=== PATIENT | male | born 1980 | race Caucasian/White ===

== ENCOUNTER 2019-08-12 14:21 | Inpatient (IN) | payer MEDICAID ==
[~2019-08-12] VITALS: Ht 177.8 cm; Wt 87.5 kg
[~2019-08-12 14:21] MED LIST: IBUPROFEN600 MG PO; NKM; ROBAXIN-750750 MG PO
[2019-08-12 14:46] VITALS: BP 117/72
--- NOTE | 2019-08-12 14:56 | NUR ---
ED Nurse Note: PT WALKED IN DUE TO FLU LIKE SYMPTOMS LIKE HEADACHE, FEVER, CHILLS, DIARRHEA WITH PRODUCTIVE COUGHING WITH YELLOW PHLEGM X 1 WEEK. AAO X4, AMBULATORY WITH NO RESPIRATORY DISTRESS.
--- NOTE | 2019-08-12 15:19 | Emergency Room Report ---
History of Present Illness General Chief Complaint: Flu Like Symptoms Source: Patient Present Illness HPI Patient is a 39-year-old male who presents after increased generalized body aches and cough. Reports of increased nasal congestion. He states his been having some increased nosebleeding over the past few days. Reports taking multiple different kinds of supplements including a keto supplement which he had been taking immediately prior to onset of symptoms. He reports vaping but does not smoke cigarettes. He reports having some sore throat as well as some productive cough. Allergies: Coded Allergies: LACTOSE (Unverified Allergy, Intermediate, hives, diarrhea, 08/12/19) Patient History Reviewed Nursing Documentation: PMH: Agreed; PSxH: Agreed Nursing Documentation-PMH Past Medical History: No History, Except For Hx Cardiac Problems: No Hx Hypertension: No Hx Pacemaker: No Hx Asthma: No Hx COPD: No Hx Diabetes: No Hx Cancer: No Hx Gastrointestinal Problems: Yes - gastritis, hiatal hernia Hx Dialysis: No History Of Psychiatric Problem: No Hx Neurological Problems: No Hx Cerebrovascular Accident: No Hx Seizures: No Review of Systems All Other Systems: negative except mentioned in HPI Physical Exam Vital Signs Date Time Temp Pulse Resp B/P (MAP) Pulse Ox O2 Delivery O2 Flow Rate FiO2 08/12/19 14:46 98.6 101 22 117/72 92 Room Air General Appearance: well appearing, no apparent distress, alert, GCS 15, non- toxic Head: normocephalic, atraumatic ENT: hearing grossly normal, normal voice Neck: full range of motion, supple Respiratory: lungs clear, no respiratory distress, speaking full sentences Cardiovascular #1: normal inspection, normal peripheral pulses Musculoskeletal: no calf tenderness Neurologic: normal gait Psychiatric: mood/affect normal Skin: no rash Medical Decision Making Diagnostic Impression: Primary Impression: Interstitial pneumonia Additional Impression: Lung injury associated with vaping ER Course Patient presented for increased congestion and cough. Differential diagnosis include was not limited to strep pharyngitis, pneumonia, vaping associated lung injury, medication toxicity among others. Because of complexity of patient's case imaging studies were ordered.. Chest x-ray 1 view read by radiology showed diffuse increased interstitial markings suggesting pulmonary vascular congestion or interstitial pneumonitis. No Focal infiltrate. Patient was given breathing treatment with some improvement.Patient was noted to have some elevation of his white blood count. He was given IV fluids as well as IV antibiotics. EKG interpreted by me showed normal sinus rhythm with a rate of [address] or T wave changes. Dr. Zak Green was contacted for inpatient management due to persistent tachypnea and abnormal chest x-ray. Patient will be admitted for further management. Labs Test 08/12/19 16:50 White Blood Count 19.2 K/UL (4.8-10.8) Red Blood Count 5.73 M/UL (4.70-6.10) Hemoglobin 13.9 G/DL (14.2-18.0) Hematocrit 42.1 % (42.0-52.0) Mean Corpuscular Volume 74 FL (80-99) Mean Corpuscular Hemoglobin 24.3 PG (27.0-31.0) Mean Corpuscular Hemoglobin Concent 33.1 G/DL (32.0-36.0) Red Cell Distribution Width 11.7 % (11.6-14.8) Platelet Count 428 K/UL (150-450) Mean Platelet Volume 5.3 FL (6.5-10.1) Neutrophils (%) (Auto) % (45.0-75.0) Lymphocytes (%) (Auto) % (20.0-45.0) Monocytes (%) (Auto) % (1.0-10.0) Eosinophils (%) (Auto) % (0.0-3.0) Basophils (%) (Auto) % (0.0-2.0) EKG Diagnostic Results Rate: normal - 89 Rhythm: NSR ST Segments: no acute changes Last Vital Signs Date Time Temp Pulse Resp B/P (MAP) Pulse Ox O2 Delivery O2 Flow Rate FiO2 08/12/19 14:56 101 22 Room Air 08/12/19 14:46 98.6 117/72 (87) 92 Status: unchanged Disposition: ADMITTED INPATIENT Condition: Todd Rivers MD Aug 12, 2019 15:19
--- NOTE | 2019-08-12 16:20 | NUR ---
ED Nurse Note: Received patient from PASQUALE De La Rosa. Pt is aaox4, on room air, with stable vital signs. Patient has SOB. Patient placed in gown and on cardiac monitors. Patient blood specimen sent to lab.
[2019-08-12 16:30] VITALS: BP 123/106
--- NOTE | 2019-08-12 17:01 | Diagnostic Imaging Report ---
EXAM: XR Chest, 1 View CLINICAL HISTORY: Shortness of breath TECHNIQUE: Frontal view of the chest. COMPARISON: No relevant prior studies available. FINDINGS: Lungs: Diffusely increased interstitial markings. The lungs are otherwise clear without focal consolidation. Pleural space: Unremarkable. The costophrenic angles are sharp. No visible pneumothorax. Heart: Unremarkable. No cardiomegaly. Mediastinum: Unremarkable. Bones/joints: Unremarkable. IMPRESSION: Diffusely increased interstitial markings. This is nonspecific but may suggest pulmonary vascular congestion or interstitial pneumonitis. No focal consolidation.
[2019-08-12 17:13] LABS: HEMATOCRIT 42.1 % (42.0-52.0); HEMOGLOBIN 13.9 G/DL (14.2-18.0); MEAN CORPUSCULAR VOLUME 74 FL (80-99); PLATELET COUNT 428 K/UL (150-450); RED BLOOD COUNT 5.73 M/UL (4.70-6.10); RED CELL DISTRIBUTION WIDTH 11.7 % (11.6-14.8); WHITE BLOOD COUNT 19.2 K/UL (4.8-10.8)
[2019-08-12] MEDS ORDERED: cefTRIAXone 1 GM in NS 55 ML IVPB ONE (17:15)
[2019-08-12] MEDS ORDERED: Azithromycin 500 MG in D5W 275 ML IVPB ONE (17:15)
[2019-08-12] MEDS ORDERED: Albuterol/Ipratropium 3ml neb HHN ONE (17:15)
[2019-08-12 17:30] VITALS: BP 121/100
[2019-08-12 17:33] LABS: ANION GAP 14 mmol/L (5-15); BLOOD UREA NITROGEN 24 mg/dL (7-18); CALCIUM 9.2 MG/DL (8.5-10.1); CARBON DIOXIDE 20 MMOL/L (21-32); CHLORIDE 97 MMOL/L (98-107); CREATININE 1.1 MG/DL (0.55-1.30); POTASSIUM 3.3 MMOL/L (3.5-5.1); SODIUM 131 MMOL/L (136-145)
[2019-08-12 17:47] LABS: ALANINE AMINOTRANSFERASE 138 U/L (12-78); ALBUMIN 2.7 G/DL (3.4-5.0); ALBUMIN/GLOBULIN RATIO 0.5 (1.0-2.7); ALKALINE PHOSPHATASE 443 U/L (46-116); ASPARTATE AMINO TRANSFERASE 78 U/L (15-37); BILIRUBIN,TOTAL 1.6 MG/DL (0.2-1.0); CKMB < 0.5 NG/ML (0.0-3.6); CREATINE KINASE 53 U/L (26-308); PHOSPHORUS 3.2 MG/DL (2.5-4.9)
[2019-08-12 17:51] LABS: BILIRUBIN,DIRECT 0.9 MG/DL (0.0-0.3)
--- NOTE | 2019-08-12 18:26 | NUR ---
ED Nurse Note: Called to telemetry and spoke to PASQUALE Hammond and endorsed patient care. Patient is ready to be transported per ACLS protocol with technical operations manager.
[2019-08-12] MEDS ORDERED: Milk of Magnesia 30ml Ud ORAL PRN (18:45)
[2019-08-12] MEDS ORDERED: Solu-MEDROL 125mg Inj IVP SCH (18:45)
[2019-08-12] MEDS ORDERED: Mylanta II UD 30ml ORAL PRN (18:45)
[2019-08-12 18:47] VITALS: BP 120/76
--- NOTE | 2019-08-12 19:00 | NUR ---
ED Nurse Note: Patient went up to telemetry unit per ACLS protocol.
--- NOTE | 2019-08-12 19:00 | NUR ---
NURSE NOTES: Patient arrived via gurney to 211-2. Patient is alert and oriented x4. at bedside. Patient ambulatory and steady. Bed in low position, locked, call light within reach. Patient is on room air, no signs of respiratory distress. Bilateral rhonchi. Bowel sounds active, no c/o pain or abdominal distention. Last BM 08/12/19. Denies wounds, rashes, or skin breakdown. Able to move all extremities. Right ac 20 guage intact, patent, no signs of infiltration.
[2019-08-12 20:00] VITALS: BP 118/69
[2019-08-12] MEDS: Albuterol/Ipratropium 3ml neb HHN SCH ×2 (20:21→23:11)
[2019-08-12] MEDS: Heparin 5000 units/ml inj SUBQ SCH (20:39)
[2019-08-12 20:42] LABS: APPEARANCE,URINE CLEAR; BILIRUBIN, URINE NEGATIVE (NEGATIVE); COLOR,URINE BROWN; GLUCOSE, URINE (UA) NEGATIVE (NEGATIVE); KETONES,URINE NEGATIVE (NEGATIVE); LEUKOCYTE ESTERASE ,URINE NEGATIVE (NEGATIVE); NITRITE,URINE NEGATIVE (NEGATIVE); PH,URINE 6 (4.5-8.0); PROTEIN,URINE 2+ (NEGATIVE); UROBILINOGEN,URINE 1 MG/DL (0.0-1.0)
[2019-08-13] VITALS (7 sets, daily range): BP systolic 110–135; BP diastolic 55–72
[2019-08-13] MEDS ORDERED: MULTIVITAMINS1 EAC2 ORAL (00:45)
[2019-08-13] MEDS ORDERED: FISH OIL CAP1000 MG ORAL (00:45)
[2019-08-13] MEDS ORDERED: FOLBIC RF TABL1 EACH PO (00:45)
[2019-08-13] MEDS: Zolpidem 5mg tab ORAL PRN (00:51)
[2019-08-13] MEDS: Albuterol/Ipratropium 3ml neb HHN SCH ×6 (03:17→23:40)
--- NOTE | 2019-08-13 06:41 | NUR ---
NURSE NOTES: Notified Dr. Green that patient's heart rate went down to the 40s this morning, sinus arrhythmia non-sustained. No new order.
[2019-08-13 07:22] LABS: HEMATOCRIT 39.6 % (42.0-52.0); HEMOGLOBIN 12.9 G/DL (14.2-18.0); MEAN CORPUSCULAR VOLUME 75 FL (80-99); PLATELET COUNT 398 K/UL (150-450); RED BLOOD COUNT 5.27 M/UL (4.70-6.10); WHITE BLOOD COUNT 12.1 K/UL (4.8-10.8)
--- NOTE | 2019-08-13 07:32 | NUR ---
HAND-OFF: Report given to Sabina GIORDANO.
--- NOTE | 2019-08-13 07:33 | NUR ---
NURSE NOTES: Received report from PASQUALE Martinez. Patient in bed resting, no active s/s cardiac, respiratory distress noticed at this time. Patient AOX4, on room air, SR with HR 78. Endorsed patient SB during the night, made aware, no new order given. Bed in lowest position, side rails upx2, call light within reach. Will continue to monitor.
[2019-08-13 07:41] LABS: ALANINE AMINOTRANSFERASE 135 U/L (12-78); ALBUMIN 2.4 G/DL (3.4-5.0); ALBUMIN/GLOBULIN RATIO 0.4 (1.0-2.7); ALKALINE PHOSPHATASE 410 U/L (46-116); ANION GAP 10 mmol/L (5-15); ASPARTATE AMINO TRANSFERASE 76 U/L (15-37); BILIRUBIN,TOTAL 0.9 MG/DL (0.2-1.0); BLOOD UREA NITROGEN 20 mg/dL (7-18); CALCIUM 9.1 MG/DL (8.5-10.1); CARBON DIOXIDE 25 MMOL/L (21-32); CHLORIDE 102 MMOL/L (98-107); POTASSIUM 3.6 MMOL/L (3.5-5.1); SODIUM 137 MMOL/L (136-145)
[2019-08-13] MEDS: cefTRIAXone 1 GM in D5W 55 ML IVPB SCH (08:17)
[2019-08-13] MEDS: Azithromycin 250mg tab ORAL SCH (08:17)
[2019-08-13] MEDS: Heparin 5000 units/ml inj SUBQ SCH ×2 (08:21→20:35)
--- NOTE | 2019-08-13 19:31 | NUR ---
HAND-OFF: Report given to PASQUALE Martinez.
--- NOTE | 2019-08-13 20:30 | NUR ---
NURSE NOTES: Patient c/o fever, chills, sweats. Gave tylenol 650mg po prn. Patient refused ice packs.
--- NOTE | 2019-08-13 21:45 | History and Physical Report ---
DATE OF ADMISSION: 08/12/2019 CHIEF COMPLAINT AND REASON FOR HOSPITALIZATION: The patient is a 39-year-old man with coughs, chills, weakness, nausea. HISTORY OF PRESENT ILLNESS: The patient had about a week long duration of symptoms of cough, some diarrhea, vomiting, epistaxis, headache, chills, weakness, and presents to the emergency room as she is not getting better. There is a history of the patient's father recently being treated for outpatient pneumonia. The patient also admits to vaping. He exercises regularly and over the past several weeks started taking keto pills and muscle protein drink. Prior to this, he has generally been in good health. MEDICATIONS: Heti-vck-tyvycpy vitamins and supplements as above. ALLERGIES: In the past, he has had some lactose intolerance and gets hives and bloating and gas, but he tolerates cheese and uses a lactose-free milk. SURGERIES: He had I and D of a spider bite on his buttocks. He has also had endoscopy showing only hiatal hernia. HABITS: He vapes marijuana and smokes marijuana. He does not smoke regular cigarettes. Rarely takes alcohol. No intravenous drugs. SOCIAL HISTORY: He is . 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 SYSTEM REVIEW: HEAD, EYES, EARS, NOSE, AND THROAT: Vision and hearing is good. ENDOCRINE: No known diabetes or thyroid disease. PULMONARY: No asthma, TB, chronic cough. CARDIAC: No angina, FL, or palpitations. GASTROINTESTINAL: No GI bleeding, ulcers, or history of hepatitis or gallstones. GENITOURINARY: No dysuria, hematuria, or kidney stones. MUSCULOSKELETAL: A history of spinal problems, sciatica, discogenic disease, and some knee pain. NEUROLOGIC: No CVA, syncope, or seizure disorder. PHYSICAL EXAMINATION: GENERAL: The patient is a well-developed man, in no acute distress. VITAL SIGNS: Temperature 98.3, pulse 81, respirations 20, blood pressure 131/72. HEAD, EYES, EARS, NOSE, AND THROAT: Sclerae are nonicteric. Ocular motions were intact in all directions. Oral mucosa is moist. NECK: No adenopathy or thyroid enlargement. LUNGS: Clear. HEART: Rhythm is regular. I hear no murmur. ABDOMEN: Soft. No organomegaly or masses. EXTREMITIES: No edema, cyanosis, or clubbing. There is no focal joint swelling. PERTINENT DATABASE: Chest x-ray shows diffuse increased interstitial markings. May suggest pulmonary vascular congestion or interstitial pneumonitis. Blood work shows a white count of 19.2, hemoglobin of 13.9 on admission with a sodium 131, potassium 3.3, BUN 24, creatinine 1.1. Glucose 120, AST 78, ALT 138, alkaline phosphatase 443. CK 53. Troponin negative. Albumin low at 2.7. Urine dipstick positive for protein. IMPRESSION: 1. Interstitial pneumonitis. 2. Elevated liver enzymes. 3. Proteinuria. 4. History of vaping and concern for vaping related lung injury and abnormal liver enzymes as above. 5. 6. Low serum albumin, possibly from acute infection, possibly other etiology. PLAN: We will need update the patient's laboratories. He has been started on antibiotics for interstitial pneumonitis. We will watch him closely in view of these abnormal laboratories. Also abdominal ultrasound. Zak Green M.D. DR: SANTIAGO JOB#: [id number] CC:
--- NOTE | 2019-08-13 23:30 | NUR ---
NURSE NOTES: Patient still worried about his condition and that he might be getting worse. Patient did not know what he needed but thought we needed to do something. Explained to patient that his WBC is down and the abx seems to be working. Patient was still worried. Notified Dr. Green, no orders.
--- NOTE | 2019-08-14 | NUR ---
NURSE NOTES: Patient verbalized understanding that he cannot have any food or drink after midnight.
[2019-08-14] MEDS: Zolpidem 5mg tab ORAL PRN (00:44)
[2019-08-14 02:33] LABS: APPEARANCE,URINE CLEAR; BILIRUBIN, URINE NEGATIVE (NEGATIVE); GLUCOSE, URINE (UA) NEGATIVE (NEGATIVE); KETONES,URINE NEGATIVE (NEGATIVE); LEUKOCYTE ESTERASE ,URINE NEGATIVE (NEGATIVE); NITRITE,URINE NEGATIVE (NEGATIVE); PH,URINE 6 (4.5-8.0); UROBILINOGEN,URINE 1 MG/DL (0.0-1.0)
[2019-08-14 02:45] LABS: COLOR,URINE YELLOW; PROTEIN,URINE NEGATIVE (NEGATIVE)
[2019-08-14] MEDS: Albuterol/Ipratropium 3ml neb HHN SCH ×4 (02:57→15:21)
[2019-08-14 04:00] VITALS: BP 125/60
[2019-08-14 07:05] LABS: HEMATOCRIT 36.8 % (42.0-52.0); HEMOGLOBIN 12.3 G/DL (14.2-18.0); MEAN CORPUSCULAR VOLUME 75 FL (80-99); PLATELET COUNT 419 K/UL (150-450); RED BLOOD COUNT 4.93 M/UL (4.70-6.10); RED CELL DISTRIBUTION WIDTH 11.9 % (11.6-14.8); WHITE BLOOD COUNT 18.8 K/UL (4.8-10.8)
--- NOTE | 2019-08-14 07:17 | NUR ---
HAND-OFF: Report given to Sabina GIORDANO.
--- NOTE | 2019-08-14 07:22 | NUR ---
NURSE NOTES: Received report from PASQUALE Martinez. Patient in bed resting, no active s/s cardiac, respiratory distress noticed at this time. Patient AOx4, SR with HR 90. Endorsed patient NPO at midnight, schedule for US abd today. Endorsed patient was having fever last night, Tylenol given once. Bed in lowest position, side rails upx2, call light within reach, family member at the bedside. Will continue to monitor.
[2019-08-14 07:38] LABS: ALANINE AMINOTRANSFERASE 447 U/L (12-78); ALBUMIN 2.3 G/DL (3.4-5.0); ALBUMIN/GLOBULIN RATIO 0.5 (1.0-2.7); ALKALINE PHOSPHATASE 425 U/L (46-116); ANION GAP 12 mmol/L (5-15); ASPARTATE AMINO TRANSFERASE 340 U/L (15-37); BILIRUBIN,TOTAL 0.8 MG/DL (0.2-1.0); BLOOD UREA NITROGEN 20 mg/dL (7-18); CALCIUM 8.5 MG/DL (8.5-10.1); CARBON DIOXIDE 24 MMOL/L (21-32); CHLORIDE 103 MMOL/L (98-107); CREATINE KINASE 53 U/L (26-308); CREATININE 1.1 MG/DL (0.55-1.30); POTASSIUM 3.2 MMOL/L (3.5-5.1); SODIUM 139 MMOL/L (136-145)
[2019-08-14 08:00] VITALS: BP 111/61
[2019-08-14] MEDS: cefTRIAXone 1 GM in D5W 55 ML IVPB SCH ×2 (08:35→08:44)
[2019-08-14] MEDS: Azithromycin 250mg tab ORAL SCH (08:35)
[2019-08-14] MEDS: Heparin 5000 units/ml inj SUBQ SCH (08:37)
--- NOTE | 2019-08-14 10:00 | NUR ---
NURSE NOTES: Paged Dr. Green for WBC, AST, ALT, K level. Awaiting for callback.
[2019-08-14 12:00] VITALS: BP 131/68
--- NOTE | 2019-08-14 15:29 | Diagnostic Imaging Report ---
Indication: Abdominal pain. Leukocytosis Technique: Grayscale and duplex Doppler imaging of the abdomen performed. Comparison: None Findings: The liver is unremarkable. Doppler interrogation of the main portal vein shows patency with hepatopedal, monophasic flow. There is no biliary ductal dilatation identified. Gallbladder is unremarkable. CBD is 4 mm. There demonstrated part of the pancreas, aorta and IVC show no definite abnormalities. There is a small right renal cyst measuring 6 mm. There is no hydronephrosis. IMPRESSION: No acute findings. Right renal cyst
--- NOTE | 2019-08-14 15:55 | NUR ---
CASE MANAGEMENT:REVIEW 39 YR OLD MALE WALKED IN TO ER CC; FLU LIKE SYMPTOMS. HEADACHE, FEVER,CHILLS, DIARRHEA AND PRODUCTIVE COUGH PMH: VAPING SI: INTERSTITIAL PNEUMONIA 98.6 101 24 117/72 92% ON RA WBC+19.2 IS: IBUPROFEN PO X1 1L NS BOLUS X1 DUONEB HHN X1 IV AZITHROMYCIN X1 IV ROCEPHIN X1 : TO TELEMETRY 08/14/19 SI: INTERSTITIAL PNEUMONITIS ELEVATED LIVE ENZYMES 98.6 104 22 131/68 95% ON RA WBC+18.8 IS: IV ROCEPHIN Q24 IV AZITHROMYCIN Q24 DUONEB HHN Q4HRS RTC TELEMETRY STATUS DCP: FROM HOME
[2019-08-14 16:00] VITALS: BP 118/67
[2019-08-14] MEDS ORDERED: CEPHALEXIN500 MG ORAL (17:27)
--- NOTE | 2019-08-14 18:00 | NUR ---
NURSE NOTES: Patient discharged to home per Dr. Green. Prescription given to the patient, family member at the bedside. Instruction, education given to the patient regard medication. Patient discharged with all belongings in a stable condition. swatcher returned to the business office technician. IV removed and ID band removed and placed in shredder.
--- NOTE | 2019-08-14 18:45 | Discharge Summary ---
DATE OF ADMISSION: 08/12/2019 DATE OF DISCHARGE: 08/14/2019 PERTINENT HISTORY: The patient is a 39-year-old man with cough, chills, weakness, nausea. He also had elevated liver enzymes, proteinuria, and recent exposure to a relative with pneumonia. PERTINENT PHYSICAL FINDINGS: HEAD, EYES, EARS, NOSE, THROAT: Unremarkable. LUNGS: Clear. HEART: Regular rhythm. ABDOMEN: Soft, nontender. No organomegaly. COURSE IN THE HOSPITAL: Chest x-ray suggested pulmonary vascular congestion or interstitial pneumonitis. There was no clinical CHF. He did have elevated liver enzymes and proteinuria and one urinalysis, repeat negative and low serum albumin. This was explained to the patient. Serologies for hepatitis B and C were negative. There was a history of vaping and concern for vaping related lung injury and abnormal liver enzymes. The patient felt better. On the day of discharge, he was afebrile. Lungs were clear. Heart, regular rhythm. Abdomen, soft, nontender. No organomegaly. Ultrasound of the abdomen was negative. He was discharged home in improved condition. FINAL DIAGNOSES: 1. Community-acquired pneumonia with interstitial pneumonitis. 2. History of vaping. 3. Abnormal liver enzymes of uncertain etiology, possibly from vaping, possibly from acute pneumonia, possible other etiologies. 4. Proteinuria on one urinalysis, which cleared. On the repeat, it likely is an acute phase reactant. DISCHARGE DISPOSITION: Home on Zithromax 250 mg daily for four days and Keflex 500 mg q.i.d. for 10 days. I have encouraged the patient to follow up and get repeat liver enzymes and see his primary care physician within two week. Zak Green M.D. DR: DANIEL JOB#: [id number] CC:
== END 2019-08-14 18:48 | disposition home or self-care (01) | DRG 142 ==
LOC: EMR 17:18 → 2E 17:30 → EDBEDREQ 18:06
DX: J84.89 Other specified interstitial pulmonary diseases (principal); J18.9 Pneumonia, unspecified organism; F12.90 Cannabis use, unspecified, uncomplicated; R80.9 Proteinuria, unspecified; Z88.8 Allergy status to other drugs, medicaments and biological substances; J68.0 Bronchitis and pneumonitis due to chemicals, gases, fumes and vapors
CPT/HCPCS: 36415; 71045; 76700; 80053; 80307; 81001; 81003; 82248; 82550; 82553; 82962; 83605; 83690; 83735; 83880; 84100; 84484; 85007; 85025; 86703; 86710; 86803; 87040; 87340; 87517; 93005; 94640; 94664; 96361; 96365; 96367; 99285; J7030; J7620; J8499